=== PATIENT | female | born 1940 ===

== ENCOUNTER 2022-04-15 06:55 | Day surgery (SDC) | payer OTHER ==
[~2022-04-15] VITALS: Ht 162.6 cm; Wt 72.6 kg
[~2022-04-15 06:55] MED LIST: ALDACTONE50 MG PO; ATACAND32 MG PO; BIOTIN1 M1 PO; CALTRATE 600+D1 EAC1 PO; DAFLONEX-XL 11300 MG PO; DETROL LA4 MG PO; NORVASC2.5 MG PO; ULTRAM50 MG PO
== END 2022-04-15 16:53 | disposition home or self-care (01) ==
LOC: CIR.AMB 06:55
PROVIDERS: ATTEND Colon & Rectal Surgery
DX: R15.9 Full incontinence of feces (principal); R33.9 Retention of urine, unspecified; Z20.822 Contact with and (suspected) exposure to COVID-19; Z88.6 Allergy status to analgesic agent; I10 Essential (primary) hypertension; Z99.89 Dependence on other enabling machines and devices; G47.33 Obstructive sleep apnea (adult) (pediatric); K21.9 Gastro-esophageal reflux disease without esophagitis
CPT/HCPCS: 64581; 95971; C1778

== ENCOUNTER 2022-04-29 06:36 | Day surgery (SDC) | payer OTHER | END 2022-04-29 12:50 | disposition home or self-care (01) | LOC: CIR.AMB 06:36 | PROVIDERS: ATTEND Colon & Rectal Surgery | DX: R15.9 Full incontinence of feces (principal); Z88.6 Allergy status to analgesic agent; I10 Essential (primary) hypertension; E78.5 Hyperlipidemia, unspecified | CPT/HCPCS: 64590; 95971; C1767 ==